=== PATIENT | female | born 1965 | race Caucasian/White ===

== ENCOUNTER 2018-03-04 11:01 | Day surgery (SDC) | payer MEDICARE, OTHER ==
[2018-03-04] MEDS ORDERED: CLINDAMYCIN 900 MG/D5W (PMX) 50 ML IVPB (13:44)
[2018-03-04] MEDS: INSULIN ASPART [NOVOLOG] 3 ML PEN SC (14:19)
[2018-03-04] MEDS ORDERED: MIDAZOLAM 1 MG/ML 2 ML INJ IV (16:30)
[2018-03-04] MEDS ORDERED: IPRATROPIUM (NEB) 0.5 MG/2.5 ML AMP HHN (16:30)
[2018-03-04] MEDS ORDERED: LABETALOL HCL 20MG INJ IV (16:30)
[2018-03-04] MEDS ORDERED: FENTAnyl 50 MCG/ML VIAL IV ×2 (16:30)
[2018-03-04] MEDS ORDERED: EPHEDrine SULFATE 50 MG/5 ML SYG IV (16:30)
[2018-03-04] MEDS ORDERED: HYDROmorphONE 1 MG/5 ML IV SYRINGE IV ×2 (16:30)
[2018-03-04] MEDS ORDERED: DIPHENHYDRAMINE 50 MG INJ IV (16:30)
[2018-03-04] MEDS ORDERED: TRIMETHOBENZAMIDE 100 MG/ML VIAL IM (16:30)
[2018-03-04] MEDS ORDERED: OXYCODONE/ACETAMINOPHEN (5/325) TAB PO ×2 (16:30)
[2018-03-04] MEDS ORDERED: MEPERIDINE 25 MG INJ IV (16:30)
[2018-03-04] MEDS ORDERED: hydrALAzine 20 MG INJ IV (16:30)
[2018-03-04] MEDS ORDERED: ALBUTEROL 0.083% (NEB) 2.5 MG/3 ML AMP HHN (16:30)
[2018-03-04] MEDS ORDERED: LIDOCAINE 1% (MDV) 20 ML INJ (16:48)
[2018-03-04] MEDS ORDERED: NEOMYC/POLYMYX/BACIT 30 GM OINT (16:49)
[2018-03-04] MEDS ORDERED: morphine 2 MG INJ IV (17:00)
[2018-03-04] MEDS: ROPIVACAINE 0.5 % 30 ML VIAL (17:05)
[2018-03-04] MEDS: morphine SULFATE/PF (10 MG/10 ML) INJ (17:06)
[2018-03-04] MEDS: HYDROmorphONE 1 MG/5 ML IV SYRINGE IV (18:40)
[2018-03-04] MEDS: ONDANSETRON 4 MG INJ IV (18:41)
[2018-03-04] MEDS: FENTAnyl 50 MCG/ML VIAL IV (18:41)
[2018-03-04] MEDS ORDERED: NEOSTIGMINE 3 MG/3 ML SYRINGE (19:32)
[2018-03-04] MEDS ORDERED: KETOROLAC 30 MG INJ (19:32)
[2018-03-04] MEDS ORDERED: PROPOFOL 20 ML (19:32)
[2018-03-04] MEDS ORDERED: FENTAnyl 50 MCG/ML VIAL ×2 (19:32)
[2018-03-04] MEDS ORDERED: SUGAMMADEX SODIUM 200 MG/2 ML VIAL IV (19:32)
[2018-03-04] MEDS ORDERED: CEFAZOLIN 1 GM INJ (19:32)
[2018-03-04] MEDS ORDERED: LABETALOL HCL 20MG INJ (19:32)
[2018-03-04] MEDS ORDERED: ONDANSETRON 4 MG INJ (19:32)
[2018-03-04] MEDS ORDERED: MIDAZOLAM 1 MG/ML 2 ML INJ (19:32)
[2018-03-04] MEDS ORDERED: GLYCOPYRROLATE 0.4 MG INJ (19:32)
[2018-03-04] MEDS ORDERED: DEXAMETHASONE 4 MG/ML 1 ML INJ (19:32)
[2018-03-04] MEDS ORDERED: ROCURONIUM 50 MG INJ (19:32)
== END 2018-03-04 19:15 | disposition home or self-care (01) ==
LOC: SDS 11:01
DX: M94.261 Chondromalacia, right knee (principal); M94.8X6 Other specified disorders of cartilage, lower leg; E11.9 Type 2 diabetes mellitus without complications; E78.5 Hyperlipidemia, unspecified
CPT/HCPCS: 29875; 82306; 82962; 84703; 88304